=== PATIENT | female | born 1965 | race Two or more races ===

== ENCOUNTER 2017-04-03 06:01 | Outpatient (CLI) | payer BC, SELFPAY ==
[~2017-04-03] VITALS: Ht 162.6 cm; Wt 77.0 kg
--- NOTE | ~2017-04-03 | CATH ---
Cardiac Diagnostic Report Demographics Patient Name DAMIEN Smyth Gender Female Date of 1965 Age 51 year(s) Patient Number [id number] Date of Study 04/03/2017 Visit Number [id number] Room Number G6399 [place] [id number] Ht 162.56 cm Wt 77 kg Referring Shelley Babb Primary Physician Physician Steven BENSON Performing Ce Navarro MD Secondary Physician Physician Diagnostic Ce Navarro MD Assisting Physician Physician Interventional Physician Dressmaker Garment Fitter Physician Findings and Conclusions Diagnostic Findings and Conclusion Non-Obstructive CAD Normal LV function Diagnostic Recommendations Medical Therapy Routine post Angioseal Procedure Description The patient was brought to the diagnostic cardiac catheterization-EP laboratory in the fasting, non-sedated state. Informed consent was obtained in the written and verbal form after the risks and benefits were explained. The patient had no further questions and agreed to proceed. The planned puncture-incision site(s) were shaved and prepped with ChloraPrep and draped in the usual sterile manner. Conscious sedation, supplemental oxygen, and pain control medications were delivered by a registered nurse under physician guidance. Surface ECG rhythm, blood pressure measurement, and pulse oximetry were monitored throughout the procedure. Arterial access. The access site was infiltrated with lidocaine. The vessel was entered with the Seldinger technique. A sheath was advanced into the vessel and used for catheter placement. Selective left coronary angiography. A catheter was advanced into the left coronary vessel ostium under Fluoroscopic guidance. Contrast was injected by hand. Images were obtained in multiple projections. Selective right coronary angiography. A catheter was advanced into the right coronary vessel ostium under fluoroscopic guidance. Contrast was injected by hand. Images were obtained in multiple projections. Left heart catheterization with ventriculography. A catheter was advanced across the aortic valve to the left ventricle under fluoroscopic guidance. Resting hemodynamics were obtained. With the catheter at the left ventricular apex, contrast was injected. Images were obtained in ENGLISH projections. Post-ventriculography LV pressure was obtained. The catheter was gradually withdrawn into the aorta with continuous pressure recording. Arterial artery hemostasis was achieved. The patient was transferred to a regular nursing floor via cart accompanied by a nurse. The patient left the laboratory in stable condition. Diagnostic Cath Status: Elective Procedure Procedure Type Diagnostic procedure:Ventriculogram:, Left, Angiography:, Coronary Angios w/[facility] Indications: Abnormal stress perfusion study and Exertional Chest Pain. Angiographic Findings Dominance: Right Cardiac Arteries and Lesion Findings LMCA: Normal (0% Stenosis). LAD: Normal (0% Stenosis).The LAD is a large caliber vessel proximal. The 1st Diag is a large caliber vessel. The 1st Diag appears normal. LCx: Normal (0% Stenosis).LCx isnormal . Large caliber vessel. The 1st ob Madyson is a medium caliber vessel. The 1st ob Madyson appears normal. RCA: Normal (0% Stenosis).RCA is normal . Large caliber vessel. The R PL is a small caliber vessel. The R PL appears normal. The R PDA is a large caliber vessel. The R PDA appears abnormal. Procedure Data Procedure Date Date: 04/03/2017Start: 07:56 AMEnd: 08:14 AM Entry Locations - Retrograde Percutaneous access was performed through the Right Femoral artery (Primary location). A 6 Fr sheath was inserted. Hemostasis was successfully obtained using Angio-Seal STS PLUS ([facility]). Closure Comments: bello . Procedure Medications Order and Administration + + +-------+------+ !Time !Medication !Dosage !Route ! + + +-------+------+ !04/03/2017 07:53 AM !Versed !1 mg !I.V. ! + + +-------+------+ !04/03/2017 07:54 AM !Fentanyl !25 mcg !I.V. ! + + +-------+------+ Devices Used - A6 Fr. BS JL 4 Diag. Catheterwas used for:Left coronary angiography. - A6 Fr. BS JR 4 Diag. Catheterwas used for:Right coronary angiography. - A6 Fr. BS Angled Pigtail Diag. Catheterwas used for:Left ventriculography. Contrast Material - Isovue 99793 ml Fluoroscopy Time: Diagnostic: 3:12 minutes. Total: 3:12 minutes. Fluoroscopy Dose: Diagnostic: 582 mGy. Total: 582 mGy. Estimated Blood Loss: 5 ml. Medical History Performed Procedures and Imaging Results - Stress testing with SPECT MPIwas performed on 02/15/2017. Results were: Positive. Risk/Extent of ischemia was: Intermediate risk. Allergies - Antibiotics:(keflex). Risk Factors The patient risk factors include:hypertension, orally-treated diabetes mellitus and dyslipidemia. Admission Data Admission Date: 04/03/2017 Admission Time: 06:01 AM Admit Source: Other Insurance Payors: Private health insurance. Admission Medications + +------+------+ + + + + !Medication !Dosage!Times !Last !Last !Administered !Comments ! ! ! !Per !Delivery !Delivery ! ! ! ! ! !Day !Date !Time ! ! ! + +------+------+ + + + + !Beta ! ! ! ! !Yes ! ! !Tori ! ! ! ! ! ! ! !(any) ! ! ! ! ! ! ! + +------+------+ + + + + Clinical Evaluation Leading to Procedure - The patient's CAD presentation was assessed as: Stable angina. - The patient's anginal syndrome during the past two weeks was assessed as: Class III according to the [place] Cardiovascular Society Classification System (CCS). Anti-anginal medications were prescribed during the past two weeks. The medication is: Beta Blockers. - The patient has been in a state of heart failure within the past two weeks. - The patient's heart failure status was assessed as NYHA Class III. VA LV function assessed as:Normal. Ejection Fraction - 04/03/2017 - Method: LV gram. EF%: 60. LVA Segment Contractility 1 - Normal 3 - Mild 5 - Severe 7 - Dyskinesis hypokinesis hypokinesis 2 - 4 - Moderate 6 - Akinesis 8 - Aneurysm Hypokinesis hypokinesis Hemodynamics Condition: Rest O2 Consumption: Estimated: 175.51Heart Rate: 68 bpm Pressures (mmHg) +-----+ + !Site !Pressure ! +-----+ + !AO !144/77 (103) ! +-----+ + !LV !137/3 ,14 ! +-----+ + !LV !136/3 ,14 ! +-----+ + !LV !126/4 ,14 ! +-----+ + !AO !129/66 (94) ! +-----+ + !LV !129/4 ,14 ! +-----+ + Valve Gradients and Areas + +---------+---------+---------+ +---------+ + !Valve !Peak !Mean !Area !Index !Flow !Source ! + +---------+---------+---------+ +---------+ + !Aortic !0 !0 ! ! ! ! ! + +---------+---------+---------+ +---------+ + !Aortic !0 !0 ! ! ! ! ! + +---------+---------+---------+ +---------+ + Shunts Oxygen Values O2 Capacity 161.84 O2 Consumption 175.51 Signatures dtt: Ramon Encinas (cardio) dtd: 04/03/17 0756 Physician Self Edit
[~2017-04-03 06:01] MED LIST: DELTASONE5 MG PO; FOLIC ACID1 MG PO; GLUCOPHAGE500 MG PO; LEVOTHROID (S125 MCG PO; LOPRESSOR25 MG PO; METHOTREXATE2.5 MG PO; PRINIVIL OR ZES10 MG PO
== END 2017-04-03 12:05 ==
LOC: GCAT 06:01 → GPCU 06:01 → GPOC 10:00 → GCAT 12:05
PROC: 4A023N7 Measurement of Cardiac Sampling and Pressure, Left Heart, Percutaneous Approach (ICD-10-PCS; principal; 2017-04-03)
PROC: B216YZZ Fluoroscopy of Right and Left Heart using Other Contrast (ICD-10-PCS; 2017-04-03)
DX: I25.118 Atherosclerotic heart disease of native coronary artery with other forms of angina pectoris (principal); Z88.1 Allergy status to other antibiotic agents
CPT/HCPCS: C1760; J1200; J1644; J2001; J2250; J3010; J7030